=== PATIENT | female | born 1970 | race Caucasian/White ===

== ENCOUNTER 2023-08-31 07:00 | Outpatient (CLI) | payer SELFPAY ==
--- NOTE | 2023-08-31 16:32 | XRAY Report ---
PROCEDURE: Foot 3+V RT INDICATIONS: PLANTAR FASCIITIS TECHNIQUE: 3 views of the foot were acquired. COMPARISON: None. FINDINGS: Bones: Ill-defined lucency seen at the base of the first distal phalanx not well seen on all views.. No suspicious bony lesions. Soft tissues: No tibiotalar joint effusion. Achilles tendon appears normal. IMPRESSION: Ill-defined, nondisplaced lucency at the base of the first distal phalanx. Recommend correlation of p oint tenderness as fracture cannot be excluded. Reviewed by: Natalee Muniz MD on 08/31/2023 4:30 PM PDT Approved by: Natalee Muniz MD on 08/31/2023 4:30 PM PDT Station ID: [id number]
== END 2023-08-31 23:59 | disposition home or self-care (01) ==
LOC: DI.S 07:00 → MERGE 07:00 → DI.S 23:59
PROVIDERS: ATTEND Physician Assistant
DX: M72.2 Plantar fascial fibromatosis (principal)

== ENCOUNTER 2023-10-18 15:03 | Outpatient (CLI) | payer BC ==
--- NOTE | 2023-10-19 09:06 | MRI Report ---
PROCEDURE: Foot RT WO INDICATIONS: RIGHT FOOT INJURY TECHNIQUE: Noncontrast sagittal T1 spin echo and T2 fast spin echo with fat saturation, long-axis T1 spin echo a nd T2 fast spin echo with fat saturation, short-axis proton density fast spin echo and T2 fast spin e cho with fat saturation through the forefoot. COMPARISON: None. FINDINGS: Image quality: Excellent. Bones and joints: There are mild to moderate marrow contusions involving the base of the fourth and f ifth metatarsals as well as the cuboid bone. There is a small effusion present within the articulatio n of the cuboid and fourth and fifth metatarsals. I do not definitely see disruption of the Lisfranc ligament however I would recommend correlation with clinical exam. There is some mild to moderate tenosynovitis involving the proximal visualized aspect of the flexor h allucis longus tendon as well as the visualized peroneus longus and brevis tendons. Soft tissues: The visualized plantar foot muscles demonstrate normal signal and bulk. Visualized fl exor and extensor tendons appear intact. No soft tissue ganglion cysts or bursal fluid collections. Sagittal images demonstrate no evidence for plantar plate tears. IMPRESSION: 1. Mild to moderate marrow contusions involving the base of the fourth and fifth metatarsals as well as the adjacent cuboid bone. 2. Small effusion in the articulation between the cuboid and fourth and fifth metatarsals. 3. Mild to moderate tenosynovitis flexor hallucis longus tendon, and the peroneus brevis and longus t endons. Reviewed by: Sean Hernandez MD on 10/19/2023 9:04 AM PDT Approved by: Sean Hernandez MD on 10/19/2023 9:04 AM PDT Station ID: [id number]
== END 2023-10-18 15:04 | disposition home or self-care (01) ==
LOC: DI 15:03
PROVIDERS: ATTEND Podiatrist
DX: S90.31XA Contusion of right foot, initial encounter (principal); M25.474 Effusion, right foot; M65.9 Synovitis and tenosynovitis, unspecified